=== PATIENT | female | born 1945 | race Caucasian/White ===

== ENCOUNTER → 2016-06-11 | Outpatient (CLI) | payer MEDICARE ==
[~2016-06-11] MED LIST: ALPRAZOLAM0.5 MG PO; ASPIR-LOW81 MG PO; CILOSTAZOL100 MG PO; FLUOXETINE HCL20 M1 PO; LISINOPRIL40 MG PO; MIRALAX17 GM PO; NAMENDA5 MG PO; OMEPRAZOLE20 MG PO; REMERON15 MG PO; SEROQUEL100 MG PO; STOOL SOFTENER100 MG PO; SYNTHROID 88 M88 MCG PO; VESICARE10 MG PO
== END ==
LOC: US 12:30
DX: N18.3 Chronic kidney disease, stage 3 (moderate) (principal); N28.89 Other specified disorders of kidney and ureter